=== PATIENT | male | born 1945 | race Caucasian/White ===

== ENCOUNTER 2020-06-23 14:47 | Emergency (ER) | payer MEDICARE ==
[~2020-06-23] VITALS: Wt 109.3 kg
[2020-06-23 16:18] LABS: BASO % 0.4 % (0.0-1.0); EOS # 0.2 10*3/uL (0.0-0.4); EOS % 2.5 % (1.0-4.0); HEMATOCRIT 44.5 % (42.0-52.0); LYMPH # 1.2 10*3/uL (1.3-4.4); LYMPH % 18.4 % (27.0-41.0); MEAN CELL VOLUME 90.6 fl (80.0-94.0); MEAN CORPUSCULAR HGB 28.9 pg (27.0-31.0); MEAN CORPUSCULAR HGB CONC 31.9 g/dl (33.0-37.0); MEAN PLATELET VOLUME 11.7 fl (9.6-12.3); MONO # 0.7 10*3/uL (0.1-1.0); MONO % 9.7 % (3.0-9.0); NEUT # 4.6 10*3/uL (2.3-7.9); NEUT % 68.4 % (47.0-73.0); PLATELET COUNT AUTOMATED 198 10*3/uL (130-400); RED BLOOD COUNT 4.91 10*6/uL (4.50-5.90); RED CELL DISTRI WIDTH 14.9 % (0-14.5); WHITE BLOOD COUNT 6.7 10*3/uL (4.8-10.8)
[2020-06-23 16:38] LABS: ALBUMIN 3.2 gm/dl (3.1-4.5); ALKALINE PHOSPHATASE 59 U/L (45-117); BUN 18 mg/dl (7-24); CHLORIDE 107 mmol/L (98-107); CPK 444 U/L (39-308); CREATININE 0.97 mg/dL (0.70-1.30); SGOT/AST 46 IU/L (3-35); SGPT/ALT 76 U/L (12-78); SODIUM 140 mmol/L (136-145); TOTAL PROTEIN 7.5 gm/dL (6.4-8.2)
[2020-06-23 16:44] LABS: TROPONIN I < 0.015 ng/ml (<0.045)
== END 2020-06-23 17:56 | disposition home or self-care (01) ==
LOC: ED 14:47
PROVIDERS: Emergency Medicine
DX: S00.01XA Abrasion of scalp, initial encounter (principal); S80.212A Abrasion, left knee, initial encounter; E11.9 Type 2 diabetes mellitus without complications; W19.XXXA Unspecified fall, initial encounter; Y93.89 Activity, other specified; Y92.098 Other place in other non-institutional residence as the place of occurrence of the external cause; Y99.8 Other external cause status